=== PATIENT | female | born 1935 | race American Indian/Alaskan Native ===

== ENCOUNTER 2018-06-09 12:09 | Inpatient (IN) | payer BC, MEDICARE ==
[~2018-06-09] VITALS: Ht 167.6 cm; Wt 50.4 kg
[2018-06-09] MEDS ORDERED: DILTIAZEM HCL 5MG/ML 5ML VIAL IV ONE (13:15)
[2018-06-09] MEDS ORDERED: DILTIAZEM HCL 125 MG in DEXT 5% WATER 100 ML IV ONE ×2 (13:15→14:30)
[2018-06-09 14:16] LABS: CHLORIDE 105 mEq/L (98-107)
[2018-06-09 14:17] LABS: INR 1.1; PROTHROMBIN TIME 11.1 sec (9.4-11.6)
[2018-06-09 14:18] LABS: BASOPHILS % 0.3 % (0.0-2.0); EOSINOPHILS % 0.5 % (0.0-5.0); HEMATOCRIT. 45.8 % (36.0-48.0); HEMOGLOBIN. 15.7 g/dL (12.0-16.0); LYMPHOCYTES % 13.6 % (20.0-50.0); MEAN CORPUSCULAR HEMOGLOBIN 32.4 pg (28.0-32.0); MEAN CORPUSCULAR VOLUME 94.8 fL (81.0-99.0); MEAN PLATELET VOLUME 8.3 fl (7.4-10.4); MONOCYTES % 5.8 % (2.0-8.0); NEUTROPHILS % 79.8 % (40.0-76.0); PLATELET 214 x1000/uL (130-400); RED BLOOD CELL COUNT 4.83 mill/uL (4.2-5.4); RED CELL DISTRIBUTION WIDTH 13.2 % (11.6-14.6)
[2018-06-09 14:37] LABS: CLARITY URINE CLEAR (CLEAR); COLOR URINE YELLOW (YELLOW); KETONES URINE NEGATIVE (NEGATIVE); LEUKOCYTE ESTERASE URINE NEGATIVE (NEGATIVE); NITRITE URINE NEGATIVE (NEGATIVE); OCCULT BLOOD URINE NEGATIVE (NEGATIVE); PH URINE 7.5 (4.5-8.0); PROTEIN URINE NEGATIVE (NEGATIVE); SPECIFIC GRAVITY URINE 1.022 (1.005-1.030); UROBILINOGEN URINE 0.2 E.U./dL (0.2-1.0)
[2018-06-09] MEDS ORDERED: TRAMADOL 50MG TABLET PO PRN (14:45)
[2018-06-09] MEDS ORDERED: ONDANSETRON HCL 4MG/2ML VIAL IV PRN (14:45)
[2018-06-09] MEDS ORDERED: NITROGLYCERIN 0.4MG TABLET SL SL PRN (14:45)
[2018-06-09] MEDS ORDERED: ACETAMINOPHEN 325MG TABLET PO PRN (14:45)
[2018-06-09] MEDS ORDERED: MAGNESIUM/ALUMINUM HYDROXIDE/SIMETHICONE 30ML UDC PO PRN (14:45)
[2018-06-09] MEDS ORDERED: DIPHENHYDRAMINE 50MG/ML VIAL IV PRN (14:45)
[2018-06-09] MEDS ORDERED: IPRATROPIUM/ALBUTEROL 0.5-3(2.5)MG/3ML NEB INH PRN (14:45)
[2018-06-09] MEDS ORDERED: CLONIDINE 0.1MG TABLET PO PRN (14:45)
[2018-06-09] MEDS ORDERED: SODIUM CHLORIDE 0.9% 500 ML IV ONE ×2 (14:45→18:15)
[2018-06-09] MEDS ORDERED: GUAIFENESIN 200MG/10ML SUGAR FREE UDC PO PRN (14:45)
[2018-06-09] MEDS ORDERED: DOCUSATE SODIUM 100MG CAPSULE PO PRN (14:45)
[2018-06-09] MEDS ORDERED: CALCIUM GLUCONATE 100MG/ML 10ML VIAL IV ONE (15:30)
[2018-06-09] MEDS ORDERED: CALCIUM GLUCONATE 1000MG in DEXTROSE 5% WATER 50ML IV NR (16:00)
[2018-06-09] MEDS ORDERED: AMIODARONE HCL 50MG/ML 3ML VIAL IV ONE (16:30)
[2018-06-09] MEDS ORDERED: AMIODARONE HCL 900 MG in DEXT 5% WATER 482 ML IV ONE (16:30)
[2018-06-09] MEDS ORDERED: DIGOXIN 500MCG/2ML AMP IV ONE ×2 (16:45→22:30)
[2018-06-09] MEDS ORDERED: DIGOXIN 500MCG/2ML AMP IV NR (17:31)
[2018-06-09] MEDS ORDERED: DILTIAZEM HCL 60MG TABLET PO SCH (18:00)
[2018-06-09] MEDS ORDERED: LEVOFLOXACIN 500MG PREMIX 100 ML IV SCH (18:00)
[2018-06-09] MEDS ORDERED: ZOLPIDEM TARTRATE 5MG TABLET PO PRN (21:00)
[2018-06-09] MEDS ORDERED: NA PHOS,M-B/NA PHOS,DI-BA ENEMA 118ML PR PRN (21:00)
[2018-06-09] MEDS: DIGOXIN 500MCG/2ML AMP IV SCH (21:07)
[2018-06-09 21:30] VITALS: BP 111/81
[2018-06-09 22:00] VITALS: BP_SYST 114; BP_SYST 132; BP_SYST 136; BP_DIAS 77; BP_DIAS 92
[2018-06-09] MEDS: ASCORBIC ACID 500 MG TABLET PO SCH (23:14)
[2018-06-09] MEDS: FAMOTIDINE 20MG TABLET PO SCH (23:14)
[2018-06-09] MEDS: ENOXAPARIN 60MG/0.6ML SYR SUBCUT SCH (23:15)
[2018-06-10] VITALS (12 sets, daily range): BP systolic 104–162; BP diastolic 51–89
[2018-06-10] MEDS: DIGOXIN 500MCG/2ML AMP IV SCH (00:20)
[2018-06-10] MEDS: DILTIAZEM HCL 30MG TABLET PO SCH ×4 (00:20→18:09)
[2018-06-10 00:49] LABS: CREATINE KINASE MB FRACTION 3.7 ng/mL (0.5-3.6)
[2018-06-10 06:37] LABS: BASOPHILS % 0.6 % (0.0-2.0); CHLORIDE 108 mEq/L (98-107); EOSINOPHILS % 0.5 % (0.0-5.0); HEMATOCRIT. 42.8 % (36.0-48.0); HEMOGLOBIN. 14.8 g/dL (12.0-16.0); LYMPHOCYTES % 15.9 % (20.0-50.0); MEAN CORPUSCULAR HEMOGLOBIN 33.1 pg (28.0-32.0); MEAN CORPUSCULAR VOLUME 95.7 fL (81.0-99.0); MONOCYTES % 8.3 % (2.0-8.0); NEUTROPHILS % 74.7 % (40.0-76.0); PLATELET 214 x1000/uL (130-400); RED BLOOD CELL COUNT 4.47 mill/uL (4.2-5.4); RED CELL DISTRIBUTION WIDTH 13.2 % (11.6-14.6)
[2018-06-10 06:50] LABS: CREATINE KINASE MB FRACTION 4.3 ng/mL (0.5-3.6)
[2018-06-10 06:55] LABS: LDL CHOLESTEROL 68 mg/dL (5-100)
[2018-06-10 06:56] LABS: CREATINE KINASE 145 IU/L (26-192)
[2018-06-10 06:58] LABS: HDL CHOLESTEROL 49 mg/dL (40-59)
[2018-06-10] MEDS: FAMOTIDINE 20MG TABLET PO SCH (08:23)
[2018-06-10] MEDS: ZINC SULFATE 220 MG ( 50 ) CAPSULE PO SCH (08:23)
[2018-06-10] MEDS: ASCORBIC ACID 500 MG TABLET PO SCH ×2 (08:23→20:18)
[2018-06-10] MEDS: ENOXAPARIN 60MG/0.6ML SYR SUBCUT SCH ×2 (08:23→20:18)
[2018-06-10] MEDS ORDERED: ASPIRIN 325MG EC TABLET PO SCH (09:00)
[2018-06-10] MEDS ORDERED: REGADENOSON 0.4 MG/5 ML IV ONE ×2 (10:00→10:36)
[2018-06-10] MEDS ORDERED: METOPROLOL TARTRATE 25MG TABLET PO SCH (10:45)
[2018-06-10] MEDS: ASPIRIN 81MG EC TABLET PO SCH (15:15)
[2018-06-10 17:43] LABS: *AMPHETAMINES SCREEN URINE NEGATIVE (NEGATIVE)
[2018-06-10 17:44] LABS: *BARBITURATES SCREEN URINE NEGATIVE (NEGATIVE); *BENZODIAZEPINES SCREEN URINE NEGATIVE (NEGATIVE); *COCAINE SCREEN URINE NEGATIVE (NEGATIVE); METHADONE URINE SCREEN NEGATIVE (NEGATIVE); OPIATES URINE SCREEN NEGATIVE (NEGATIVE)
[2018-06-10] MEDS ORDERED: LEVOFLOXACIN 250MG PREMIX 50 ML IV SCH ×2 (18:00→20:00)
[2018-06-10 18:04] LABS: CANNABINOID URINE SCREEN NEGATIVE (NEGATIVE)
[2018-06-10 18:19] LABS: PHENCYCLIDINE URINE SCREEN NEGATIVE (NEGATIVE)
[2018-06-11] VITALS (8 sets, daily range): BP systolic 95–132; BP diastolic 55–82
[2018-06-11] MEDS: DILTIAZEM HCL 30MG TABLET PO SCH ×2 (04:36)
[2018-06-11 07:05] LABS: BASOPHILS % 0.8 % (0.0-2.0); EOSINOPHILS % 2.9 % (0.0-5.0); HEMATOCRIT. 42.2 % (36.0-48.0); HEMOGLOBIN. 14.4 g/dL (12.0-16.0); LYMPHOCYTES % 24.6 % (20.0-50.0); MEAN CORPUSCULAR HEMOGLOBIN 32.6 pg (28.0-32.0); MEAN CORPUSCULAR VOLUME 95.4 fL (81.0-99.0); MEAN PLATELET VOLUME 8.7 fl (7.4-10.4); MONOCYTES % 10.8 % (2.0-8.0); NEUTROPHILS % 60.9 % (40.0-76.0); PLATELET 211 x1000/uL (130-400); RED BLOOD CELL COUNT 4.42 mill/uL (4.2-5.4); RED CELL DISTRIBUTION WIDTH 13.2 % (11.6-14.6)
[2018-06-11 07:25] LABS: CHLORIDE 112 mEq/L (98-107)
[2018-06-11] MEDS: FAMOTIDINE 20MG TABLET PO SCH (09:19)
[2018-06-11] MEDS: ZINC SULFATE 220 MG ( 50 ) CAPSULE PO SCH (09:19)
[2018-06-11] MEDS: ASPIRIN 81MG EC TABLET PO SCH (09:19)
[2018-06-11] MEDS: ASCORBIC ACID 500 MG TABLET PO SCH (09:19)
[2018-06-11] MEDS: ENOXAPARIN 60MG/0.6ML SYR SUBCUT SCH (09:20)
[2018-06-11] MEDS ORDERED: METOPROLOL TARTRATE 25MG TABLET PO SCH (11:00)
[2018-06-11] MEDS ORDERED: CALC-1042 PO (11:49)
[2018-06-11] MEDS ORDERED: CYAN-33 PO (11:49)
[2018-06-11] MEDS ORDERED: ASPI-1159 PO (11:49)
[2018-06-11] MEDS ORDERED: FOLI-43 PO (11:53)
[2018-06-11] MEDS ORDERED: RIVA1PAT3 TD (11:53)
[2018-06-11] MEDS ORDERED: ATOR40TA70 PO (11:53)
[2018-06-11] MEDS ORDERED: MESA400C PO (11:55)
== END 2018-06-11 12:18 | disposition home or self-care (01) | DRG 74 ==
LOC: ER 12:09 → 3WST 14:06 → EDBEDREQ 14:09 → EDBEDREQTM 14:09 → EDBEDREQSVC 14:09 → SUPCPDRO 14:28 → ENRESERV 18:08 → 3WST 23:28
PROVIDERS: ADMIT Internal Medicine; ATTEND Internal Medicine
DX: G90.8 Other disorders of autonomic nervous system (principal); I48.91 Unspecified atrial fibrillation; F03.90 Unspecified dementia, unspecified severity, without behavioral disturbance, psychotic disturbance, mood disturbance, and anxiety; I10 Essential (primary) hypertension; D72.829 Elevated white blood cell count, unspecified; I95.9 Hypotension, unspecified; R29.6 Repeated falls; W18.39XA Other fall on same level, initial encounter; Y93.89 Activity, other specified; Y92.89 Other specified places as the place of occurrence of the external cause; Y99.8 Other external cause status; Z98.61 Coronary angioplasty status
CPT/HCPCS: 36415; 70450; 71045; 78452; 78582; 80053; 80061; 80305; 81003; 82550; 82553; 83036; 83735; 83880; 84443; 84484; 85025; 85379; 85610; 93005; 93880; 96361; 96374; 96375; 99291; A9500; A9558; C1893; J0282; J0610; J1160; J1650; J1956; J2785; J3490; J7030; J7040; J7050; J7060